=== PATIENT | female | born 2005 | race Two or more races ===

== ENCOUNTER 2025-02-08 08:22 | Inpatient (IN) | payer OTHER ==
[2025-02-08] MEDS ORDERED: ACETAMINOPHEN INJECTION 100 ML ONE ×2 (08:50→09:05)
[2025-02-08] MEDS: ACETAMINOPHEN 1000 MG/100 ML BAG IVPB ONE (09:25)
[2025-02-08] MEDS ORDERED: PIPERACILLIN/TAZOB 4.5 GM 4.5 GM/100 ML BAG IVPB ONE (09:27)
[2025-02-08] MEDS: PIPERACILLIN/TAZOB 4.5 GM 4.5 GM in DEXTROSE 5%-WATER 100 ML IVPB ONE (09:29)
[2025-02-08] MEDS ORDERED: VANCOMYCIN 1 GM PREMIX (F) 1 GM/200 ML BAG ONE (09:33)
[2025-02-08 09:48] LABS: EPI CELLS >36 /uL (0-25.1); HYALINE CASTS 26 /uL (0-3.1); PH,URINE 5.5 (5.0-8.0); URINE APPEARANCE CLOUDY; URINE BACTERIA 1605 /uL (0-1359); URINE BILIRUBIN NEGATIVE (NEGATIVE); URINE COLOR DK YELLOW; URINE GLUCOSE (UA) NEGATIVE (NEGATIVE); URINE KETONE TRACE (NEGATIVE); URINE LEUK ESTERASE NEGATIVE (NEGATIVE); URINE NITRITE NEGATIVE (NEGATIVE); URINE PROTEIN 1+ (NEGATIVE); URINE RBC 9 /uL (0-23.9); URINE UROBILINOGEN 0.2 mg/dL (0.2-1.0); URINE WBC 24 /uL (0-25.8)
[2025-02-08 09:50] LABS: ABSOLUTE IMMATURE GRANULOCYTES 0.02 x10^3/uL (0.0-0.031); BASOPHILS # 0.01 x10^3/uL (0.01-0.08); EOSINOPHIL % 0.6 % (0.7-5.8); EOSINOPHILS # 0.04 x10^3/uL (0.04-0.36); HEMOGLOBIN 10.4 g/dL (11.2-15.7); MCHC 33.5 g/dl (32.2-35.5); MEAN CELL VOLUME 87.6 fl (79.4-94.8); MONOCYTE % 4.5 % (4.7-12.5); PLATELET COUNT 147 x10^3/uL (182-369); RDW 12.5 % (12.0-16.2)
[2025-02-08] MEDS: VANCOMYCIN 1,000 MG in DEXTROSE 5%-WATER - 250 ML IVPB ONE (09:50)
[2025-02-08 09:52] LABS: INR 1.28 (0.83-1.09); PROTHROMBIN TIME (PATIENT) 14.1 SEC (9.7-13.0)
[2025-02-08 10:09] LABS: POTASSIUM 4.6 mmol/L (3.5-5.1); VENOUS BASE EXCESS -3.5 mmol/L (-2-2); VENOUS O2 SATURATION 61.7 % (70-80); VENOUS PCO2 29.1 mmHg (38-52); VENOUS PH 7.447 (7.310-7.410)
[2025-02-08] MEDS: LACTATED RINGERS SOLUTION 1000 ML INFUS.BAG IV ONE ×3 (10:10→13:55)
[2025-02-08 10:12] LABS: ALBUMIN 3.3 g/dl (3.4-5.0); BLOOD UREA NITROGEN 13.1 mg/dL (7-18)
[2025-02-08 10:16] LABS: CREATININE 0.6 mg/dL (0.55-1.3)
[2025-02-08 10:17] LABS: BILIRUBIN,TOTAL 0.6 mg/dL (0.2-1); TOT PROT 7.1 g/dl (6.4-8.2)
[2025-02-08 11:01] LABS: LACTIC ACID 3.5 mmol/L (0.4-2.0)
[2025-02-08 13:36] LABS: LACTIC ACID 3.9 mmol/L (0.4-2.0)
[2025-02-08] MEDS: LACTATED RINGERS SOLUTION 1000 ML INFUS.BAG IV STA (13:53)
[2025-02-08] MEDS ORDERED: POLYETHYLENE GLYCOL (HEALTHYLAX) 3350 17 GM PACKET ONE (14:12)
[2025-02-08] MEDS ORDERED: levETIRAcetam 500 MG/5 ML INJECTION VIAL IVPB ONE (14:12)
[2025-02-08] MEDS: levETIRAcetam 500 MG/5 ML INJECTION VIAL IVPB ONE (14:19)
[2025-02-08] MEDS ORDERED: VANCOMYCIN/WATER FOR INJ (PEG) 1,000 MG/200 ML BAG IVPB SCH (14:30)
[2025-02-08] MEDS: OXcarbazepine 300 MG/5 ML UNIT DOSE CUPS PO ONE (16:39)
[2025-02-08] MEDS: REMDESIVIR 200 MG in SODIUM CHLORIDE 250 ML IVPB ONE (16:39)
[2025-02-08] MEDS: LACTATED RINGERS SOLUTION 1,000 ML/1,000 ML INFUS.BAG IV SCH (16:40)
[2025-02-08] MEDS: DEXAMETHASONE SOD PHOSPHATE 10 MG/1 ML VIAL IVPUSH SCH (16:40)
[2025-02-08] MEDS: POLYETHYLENE GLYCOL (HEALTHYLAX) 3350 17 GM PACKET PO SCH ×2 (16:40→22:17)
[2025-02-08 18:32] LABS: LACTIC ACID 2.6 mmol/L (0.4-2.0)
[2025-02-08 20:50] LABS: LACTIC ACID 3.1 mmol/L (0.4-2.0)
[2025-02-08] MEDS: PIPERACILLIN/TAZOB 3.375 GM 50 ML IVPB SCH (21:41)
[2025-02-08] MEDS ORDERED: VANCOMYCIN 1 GM PREMIX (F) 1 GM/200 ML BAG IVPB SCH (22:00)
[2025-02-08] MEDS: OXcarbazepine 300 MG/5 ML 250 ML BULK BOTTLE PO SCH (22:16)
[2025-02-08] MEDS: levETIRAcetam 500 MG/5 ML INJECTION VIAL IVPB SCH (22:17)
[2025-02-09] MEDS: [UNRECOGNIZED DRUG - MIXTURE] IVPB SCH (04:01)
[2025-02-09 06:46] LABS: HEMATOCRIT 29.6 % (34.1-44.9); HEMOGLOBIN 9.8 g/dL (11.2-15.7); MCHC 33.1 g/dl (32.2-35.5); MEAN CELL VOLUME 88.1 fl (79.4-94.8); MEAN PLT VOLUME 11.1 fl (9.4-12.3); PLATELET COUNT 209 x10^3/uL (182-369); RDW 12.7 % (12.0-16.2)
[2025-02-09 06:52] LABS: POTASSIUM 3.9 mmol/L (3.5-5.1)
[2025-02-09 06:56] LABS: BLOOD UREA NITROGEN 7.5 mg/dL (7-18); CALCIUM 8.9 mg/dL (8.5-10.1); MAGNESIUM 1.9 mg/dL (1.8-2.4)
[2025-02-09 06:59] LABS: CREATININE 0.4 mg/dL (0.55-1.3)
[2025-02-09 07:00] LABS: PHOSPHOROUS 3.7 mg/dL (2.5-4.9)
[2025-02-09] MEDS: PANTOPRAZOLE SODIUM 40 MG VIAL IVPUSH SCH (10:51)
[2025-02-09] MEDS ORDERED: POLYETHYLENE GLYCOL (HEALTHYLAX) 3350 17 GM PACKET PO PRN (10:56)
[2025-02-09] MEDS: REMDESIVIR 100 MG in SODIUM CHLORIDE 250 ML IVPB SCH (13:11)
[2025-02-09] MEDS: SODIUM CHLORIDE 1,000 ML IV SCH (16:58)
[2025-02-09] MEDS: PIPERACILLIN/TAZOB 3.375 GM 3.375 GM in DEXTROSE 5%-WATER - 50 ML IVPB SCH (19:26)
[2025-02-09] MEDS ORDERED: SENNOSIDES/DOCUSATE COMBO (SENNA PLUS) TABLET (UD) PO PRN (22:39)
[2025-02-09] MEDS: BISACODYL 10 MG SUPP.RECT PR PRN (23:30)
[2025-02-09 23:51] VITALS: BMI 23.0
[2025-02-10] MEDS: MELATONIN 5 MG TABLETS PO ONE (03:07)
[2025-02-10 06:51] LABS: HEMATOCRIT 28.1 % (34.1-44.9); HEMOGLOBIN 9.3 g/dL (11.2-15.7); MCHC 33.1 g/dl (32.2-35.5); MEAN CELL VOLUME 88.9 fl (79.4-94.8); MEAN PLT VOLUME 10.6 fl (9.4-12.3); PLATELET COUNT 229 x10^3/uL (182-369); RDW 12.9 % (12.0-16.2)
[2025-02-10 07:13] LABS: POTASSIUM 3.3 mmol/L (3.5-5.1)
[2025-02-10 07:17] LABS: ALBUMIN 2.9 g/dl (3.4-5.0); BLOOD UREA NITROGEN 11.5 mg/dL (7-18); CALCIUM 8.3 mg/dL (8.5-10.1)
[2025-02-10 07:19] LABS: CREATININE 0.5 mg/dL (0.55-1.3)
[2025-02-10 07:21] LABS: BILIRUBIN,TOTAL 0.2 mg/dL (0.2-1); TOT PROT 6.1 g/dl (6.4-8.2)
[2025-02-10] MEDS: POTASSIUM CHLORIDE ORAL LIQUID 20 MEQ/15 ML PO SCH (10:30)
[2025-02-10] MEDS: CEFTRIAXONE 1 G/50 ML PREMIX 50 ML IVPB SCH (14:59)
[2025-02-10] MEDS: POTASSIUM CHLORIDE TABS 20 MEQ TABLET.ER (FP) PO SCH (16:22)
[2025-02-10] MEDS: OXcarbazepine 300 MG/5 ML 250 ML BULK BOTTLE PO SCH ×2 (16:22→21:21)
[2025-02-10] MEDS: KCL 10 MEQ IVPB 10 MEQ/100 ML INFUS.BAG IVPB SCH (17:05)
[2025-02-10] MEDS: ACETAMINOPHEN 650 MG/20.3 ML ORAL SOLUTION (CUPS) PO PRN (21:24)
[2025-02-11 07:29] LABS: ABSOLUTE IMMATURE GRANULOCYTES 0.03 x10^3/uL (0.0-0.031); BASOPHILS # 0.01 x10^3/uL (0.01-0.08); HEMATOCRIT 28.3 % (34.1-44.9); HEMOGLOBIN 9.2 g/dL (11.2-15.7); MCHC 32.5 g/dl (32.2-35.5); MEAN CELL VOLUME 89.6 fl (79.4-94.8); MEAN PLT VOLUME 10.1 fl (9.4-12.3); MONOCYTE # 0.71 x10^3/uL (0.24-0.86); MONOCYTE % 7.5 % (4.7-12.5); PLATELET COUNT 219 x10^3/uL (182-369); RDW 12.9 % (12.0-16.2)
[2025-02-11 07:55] LABS: POTASSIUM 3.6 mmol/L (3.5-5.1)
[2025-02-11 08:02] LABS: ALBUMIN 2.8 g/dl (3.4-5.0)
[2025-02-11 08:03] LABS: BLOOD UREA NITROGEN 9.4 mg/dL (7-18); CALCIUM 8.2 mg/dL (8.5-10.1); MAGNESIUM 2.1 mg/dL (1.8-2.4)
[2025-02-11 08:05] LABS: BILIRUBIN,TOTAL 0.2 mg/dL (0.2-1); TOT PROT 6.1 g/dl (6.4-8.2)
[2025-02-11 08:06] LABS: CREATININE 0.4 mg/dL (0.55-1.3); PHOSPHOROUS 3.6 mg/dL (2.5-4.9)
[2025-02-11] MEDS: ENOXAPARIN NA (PORCINE) 40 MG/0.4 ML DISP.SYRIN SQ SCH (10:19)
[2025-02-11] MEDS: MELATONIN 5 MG TABLETS PO PRN (21:38)
[2025-02-12 07:23] LABS: HEMATOCRIT 30.1 % (34.1-44.9); HEMOGLOBIN 9.7 g/dL (11.2-15.7); MCHC 32.2 g/dl (32.2-35.5); MEAN CELL VOLUME 90.4 fl (79.4-94.8); MEAN PLT VOLUME 10.7 fl (9.4-12.3); PLATELET COUNT 225 x10^3/uL (182-369); RDW 13.1 % (12.0-16.2)
[2025-02-12 07:54] LABS: MAGNESIUM 1.9 mg/dL (1.8-2.4); PHOSPHOROUS 4.2 mg/dL (2.5-4.9)
[2025-02-12] MEDS ORDERED: guaiFENesin 200 MG/10 ML 10 ML UNIT-DOSE CUPS PO PRN (08:29)
[2025-02-12] MEDS ORDERED: guaiFENesin/D-METHORPHAN HB 10 ML UNIT-DOSE CUPS PO PRN (09:55)
[2025-02-12] MEDS: guaiFENesin/D-METHORPHAN HB 10 ML UNIT-DOSE CUPS PO ONE (10:12)
[2025-02-12] MEDS: SODIUM CHLORIDE 500 ML IV STA ×3 (12:05→22:39)
[2025-02-12] MEDS: SODIUM CHLORIDE 1,000 ML IV SCH (18:08)
[2025-02-12] MEDS: SODIUM CHLORIDE 250 ML IV STA (18:08)
[2025-02-13 07:33] LABS: HEMATOCRIT 30.7 % (34.1-44.9); MCHC 32.6 g/dl (32.2-35.5); MEAN CELL VOLUME 89.8 fl (79.4-94.8); MEAN PLT VOLUME 10.4 fl (9.4-12.3); PLATELET COUNT 234 x10^3/uL (182-369); RDW 12.8 % (12.0-16.2)
[2025-02-13 07:56] LABS: POTASSIUM 3.8 mmol/L (3.5-5.1)
[2025-02-13 08:16] LABS: CALCIUM 8.4 mg/dL (8.5-10.1)
[2025-02-13 08:17] LABS: BLOOD UREA NITROGEN 8.4 mg/dL (7-18)
[2025-02-13 08:20] LABS: CREATININE 0.4 mg/dL (0.55-1.3)
[2025-02-13] MEDS: SODIUM CHLORIDE 1,000 ML IV SCH (10:38)
[2025-02-13] MEDS ORDERED: SENNOSIDES 8.6MG TABLET (FP) PO PRN (14:46)
[2025-02-13] MEDS ORDERED: DOCUSATE NA 100 MG/10 ML UNIT-DOSE CUPS PO PRN (14:46)
[2025-02-13] MEDS: DOCUSATE NA 100 MG/10 ML UNIT-DOSE CUPS PO ONE (15:05)
[2025-02-14 12:07] VITALS: BP 97/64; PULSE 71; RESP 16; TEMP 98.2
== END 2025-02-14 11:47 | disposition home or self-care (01) | DRG 137 ==
LOC: EDBD 08:22 → JER 08:22 → JERBED 10:39 → J4W 15:14
PROVIDERS: ADMIT Student in an Organized Health Care Education/Training Program; ATTEND Internal Medicine
PROC: XW033E5 Introduction of Remdesivir Anti-infective into Peripheral Vein, Percutaneous Approach, New Technology Group 5 (ICD-10-PCS; principal; 2025-02-08)
DX: U07.1 COVID-19 (principal); J12.82 Pneumonia due to coronavirus disease 2019; R53.2 Functional quadriplegia; G80.9 Cerebral palsy, unspecified; I95.9 Hypotension, unspecified; Z99.3 Dependence on wheelchair; K59.00 Constipation, unspecified; E87.6 Hypokalemia
CPT/HCPCS: 0241U-QW; 36415; 71045-TC-FY; 80048; 80053; 81003; 82803; 82962; 83605; 83735; 84100; 84484; 85025; 85027; 85610; 85730; 86140; 86850; 86900; 86901; 87040; 87081; 87086; 93005; 93010; 99285-25; J0131; J0248; J1100